=== PATIENT | female | born 1960 | race Caucasian/White ===

== ENCOUNTER → 2020-12-13 | Day surgery (SDC) | payer OTHER ==
[~2020-12-13] VITALS: Ht 157.5 cm; Wt 59.0 kg
[~2020-12-13] MED LIST: AMOXICILLIN500 MG PO; BENADRYL25 M1 PO; BISOPROLOL FUMAR5 MG PO; DUPIXENT P300 MG/2 M SC; NAPROXEN500 MG PO; PERCOCET 5-3251 EACH PO; RIZATRIPTAN10 MG PO; SINGULAIR10 MG PO; ZYRTEC10 MG PO
== END | disposition home or self-care (01) ==
LOC: FAS 06:34
DX: Z12.11 Encounter for screening for malignant neoplasm of colon (principal); Z80.0 Family history of malignant neoplasm of digestive organs; K90.41 Non-celiac gluten sensitivity; G43.709 Chronic migraine without aura, not intractable, without status migrainosus; I42.2 Other hypertrophic cardiomyopathy; Z98.51 Tubal ligation status
CPT/HCPCS: J2704; J7120